=== PATIENT | male | born 1995 | race Caucasian/White ===

== ENCOUNTER 2022-06-04 14:35 | Emergency (ER) | payer OTHER, SELFPAY ==
[2022-06-04 14:51] VITALS: BP 135/69; PULSE 76; RESP 16; TEMP 36.3; O2SAT 98
--- NOTE | 2022-06-04 14:51 | ED.ANIMALBIT ---
HPI - Animal Bite General Chief Complaint: Animal Bite Stated Complaint: dog bite Time Seen by Provider: 06/04/22 14:51 Source: patient Mode of arrival: ambulatory Limitations: no limitations History of Present Illness HPI narrative: The patient is a 26 yo male presenting to the ER for evaluation of dog bite to left forearm. Pt states he was outside in his backyard when his neighbor 's dog broke through fencing and bit him on his left arm. Patient reports puncture wounds to the left upper arm, near to the left wrist. He denies any bony pain or difficulty with movement. He denies weakness or numbness. Pt did irrigate the wound at home. Patient denies any other puncture wounds to his right upper extremity or lower extremities. Patient's dog is owned by his neighbor, he believes he is vaccinated. Animal control has been contacted. Patient is not up-to-date on a tetanus. He has no drug allergies. Related Data Allergies Allergy/AdvReac Type Severity Reaction Status Date / Time No Known Allergies Allergy Verified 06/04/22 14:53 Review of Systems Review of Systems: CONSTITUTIONAL: Denies fever CARDIOVASCULAR: Denies chest pain RESPIRATORY: Denies cough or dyspnea. GASTROINTESTINAL: Denies abdominal pain SKIN: Denies rash, reports left forearm puncture wounds MUSCULOSKELETAL: Denies back pain NEUROLOGIC: Denies headache [facility] Social History Social History (Updated 06/04/22 @ 15:02 by Alyson Delgado MD) Smoking status: Never smoker Alcohol intake: never Substance use: never Living arrangements: with family Gender identity (if verbalized by the patient): Male Exam Narrative: GENERAL: Awake, alert, conversant HEAD: Normocephalic, atraumatic. EYES: PERRLA and EOMI. ENT: Nares clear, no rhinorrhea or epistaxis. Mucous membranes moist. NECK: Supple. CHEST: No respiratory distress, breathing even and non labored HEART: Regular rate, sinus rhythm ABDOMEN:Non distended, non tender EXTREMITIES: Normal range of motion. No edema. SKIN: Warm, dry. Patient with a 1 cm superficial puncture wound to the left lateral forearm that is nonbleeding. No macerated tissue. Minimal active bleeding. No pulsatile bleeding. There are 2 puncture wounds to the left lateral wrist which are superficial, not gaping. Radial pulse 2+. Intact sensation median, ulnar, radial nerve distribution. 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 Full flexion extension at the left wrist, left elbow without limitation or pain. No bony deformity. NEURO:No focal deficits. Alert and oriented x3 Course Vital Signs Vital signs: Vital Signs Temperature 36.3 C L 06/04/22 14:51 Pulse Rate 76 06/04/22 14:51 Respiratory Rate 16 06/04/22 14:51 Blood Pressure 135/69 06/04/22 14:51 Pulse Oximetry 98 06/04/22 14:51 Temperature 36.3 C L 06/04/22 14:51 Pulse Rate 76 06/04/22 14:51 Respiratory Rate 16 06/04/22 14:51 Blood Pressure 135/69 06/04/22 14:51 Pulse Oximetry 98 06/04/22 14:51 MDM - Animal Bite MDM Narrative Medical decision making narrative: Patient presenting for evaluation of dog bite to left forearm. Patient has 1 wound which is a centimeter in nature, no significant gaping, minimal amount of bleeding. This was irrigated under tap water irrigation for 5 minutes. Patient without foreign bodies identified. No forearm bony tenderness on exam. It does appear superficial in nature. No venous or arterial bleeding source identified. Patient is neurovascularly intact in the left upper extremity with normal strength. Given superficial nature of left forearm wounds, puncture wounds to the lateral aspect of left wrist, this does seem consistent with a superficial dog bite. Without bony tenderness or deformity, we will not obtain x-ray. No evidence of foreign body on exam. Patient's tetanus was updated. Shared decision-making occurred, given risk of infection, small natures of wounds without significant gaping, will not p
[2022-06-04] MEDS: TETANUS,DIPHTHERIA,AC PERTUSSIS ADULT (0.5 ML) BOOSTRIX IM (15:06)
== END 2022-06-04 15:10 | disposition home or self-care (01) ==
LOC: ANHED 14:59
PROVIDERS: Emergency Provider Emergency Medicine
DX: S51.852A Open bite of left forearm, initial encounter (principal); Z23 Encounter for immunization; W54.0XXA Bitten by dog, initial encounter
CPT/HCPCS: 90471; 90715; 99283